=== PATIENT | male | born 1960 | race Caucasian/White ===

== ENCOUNTER 2017-10-28 15:04 | Emergency (ER) | payer BC, MEDICAID ==
[~2017-10-28] VITALS: Ht 182.9 cm; Wt 83.9 kg
[~2017-10-28 15:04] MED LIST: GABA800T PO; SUBOXONE PO
[2017-10-28] MEDS ORDERED: LORA0.5T PO (15:27)
--- NOTE | 2017-10-28 15:41 | NUR ---
Patient discharged to home in stable conditon & steady gait. Written and verbal after care instructions given to patient and spouse. Patient and family verbalized understanding of instructions.
== END 2017-10-28 15:47 | disposition home or self-care (01) ==
LOC: ER 15:05
DX: Z76.0 Encounter for issue of repeat prescription (principal); F17.210 Nicotine dependence, cigarettes, uncomplicated; Z79.899 Other long term (current) drug therapy
CPT/HCPCS: 99281; A4663

== ENCOUNTER 2018-01-19 11:21 | Emergency (ER) | payer BC ==
[~2018-01-19] VITALS: Ht 182.9 cm; Wt 86.2 kg
[~2018-01-19 11:21] MED LIST changes: +LORA0.5T PO
[2018-01-19] MEDS ORDERED: METH10TA2 PO (11:33)
[2018-01-19] MEDS ORDERED: OXYC30TA2 PO (11:33)
[2018-01-19 12:00] LABS: *BILIRUBIN,URIN NEGATIVE (NEGATIVE); *BLOOD, URINE NEGATIVE (NEGATIVE); *CLARITY,URINE CLEAR (CLEAR); *COLOR,URINE YELLOW (YELLOW); *KETONES,URINE NEGATIVE (NEGATIVE); *PROTEIN,URINE NEGATIVE (NEGATIVE); *UROBILINOGEN,URINE 0.2 E.U./dl (NORMAL); LEUKOCYTE ESTERASE ,URINE NEGATIVE (NEGATIVE); NITRITE, URINE NEGATIVE (NEGATIVE); PH,URINE 8.5 (5.0-8.0); UGLUCOSE NEGATIVE (NEGATIVE)
[2018-01-19 12:25] LABS: BACTERIA,URINE FEW /HPF (NONE SEEN); RBC,URINE 0-3 /HPF (0-3); SQUAMOUS EPITHELIAL CELL,UR NONE SEEN /HPF (NONE SEEN); WBC,URINE 0-3 /HPF (0-3)
[2018-01-19] MEDS ORDERED: HYDROMORPHONE 1 MG/1 ML DISP.SYRIN IV ONE ×2 (12:30→16:00)
[2018-01-19] MEDS ORDERED: IV NORMAL SALINE 1000 ML BAG IV ONE (12:30)
[2018-01-19] MEDS ORDERED: ONDANSETRON 4 MG/2 ML VIAL IV ONE (12:30)
[2018-01-19 13:06] LABS: BASOPHILS # (AUTO) 0.1 K/uL (0.0-8.0); BASOPHILS % (AUTO) 1.5 % (0.0-2.0); EOSINOPHILS # (AUTO) 0.2 K/uL (0.0-0.7); EOSINOPHILS % (AUTO) 2.1 % (0.0-7.0); HEMATOCRIT 40.4 % (36.7-47.1); HEMOGLOBIN 13.8 g/dL (12.5-16.3); LYMPHOCYTES # (AUTO) 1.6 K/uL (20.0-40.0); LYMPHOCYTES % (AUTO) 19.3 % (20.5-51.5); MEAN CORPUSCULAR HEMOGLOBIN 29.6 uug (23.8-33.4); MEAN CORPUSCULAR HGB CONC 34 g/dL (32.5-36.3); MEAN CORPUSCULAR VOLUME 86.3 fL (73.0-96.2); MONOCYTES # (AUTO) 0.5 K/uL (2.0-10.0); MONOCYTES % (AUTO) 5.6 % (0.0-11.0); NEUTROPHILS % (AUTO) 71.5 % (38.5-71.5); PLATELET COUNT (AUTO) 182 K/uL (152-348); RED BLOOD CELL COUNT(AUTO) 4.68 MIL/uL (4.06-5.63); WHITE BLOOD COUNT (AUTO) 8.3 K/uL (3.6-10.2)
[2018-01-19] MEDS ORDERED: HYDROMORPHONE 2 MG/1 ML DISP.SYRIN ONE ×2 (13:16→16:02)
[2018-01-19] MEDS ORDERED: ONDANSETRON 4 MG/2 ML VIAL ONE (13:16)
--- NOTE | 2018-01-19 13:18 | NUR ---
LAB DRTEW BLOOD, EKG DONE, 1L 0.9NS INFUSING, MEDS ADMIN.
[2018-01-19 13:20] LABS: POTASSIUM 4.2 mmol/L (3.5-5.1)
[2018-01-19 13:25] LABS: BILIRUBIN,DIRECT 0.1 mg/dL (0.0-0.2); BILIRUBIN,TOTAL 0.6 mg/dL (0.2-1.0); TOTAL PROTEIN, SERUM 7.4 g/dL (6.4-8.2)
[2018-01-19] MEDS ORDERED: IV NORMAL SALINE 250 ML IV ONE (13:32)
[2018-01-19] MEDS ORDERED: SWABABLE VALVE TRANSFER SET EA MC ONE (13:32)
[2018-01-19] MEDS ORDERED: IOHEXOL 300MG/ML 100 ML INFUS..BTL ONE (13:32)
[2018-01-19] MEDS ORDERED: NORMAL SALINE FLUSH 10 ML DISP.SYRIN ONE (13:32)
--- NOTE | 2018-01-19 13:35 | NUR ---
[facility] CALLED, DR WATKINS SPOKE WITH THEM.
[2018-01-19] MEDS ORDERED: BISACODYL 5 MG TABLET.DR PO ONE ×2 (17:15→17:20)
--- NOTE | 2018-01-19 17:20 | NUR ---
MSE COMPLETED, IV'S D/C'D INTACT, PT D/C'D HOME, ACI/RX X1 GIVEN. PT GOT DRESSED/AMBULATED W/O DIFF/TOOK ALL BELONGINGS, SIG OTHER TO DRIVE.
[2018-01-19 17:32] VITALS: BP 113/80
== END 2018-01-19 17:35 | disposition home or self-care (01) ==
LOC: ER 11:21
DX: R10.2 Pelvic and perineal pain (principal); F17.200 Nicotine dependence, unspecified, uncomplicated
CPT/HCPCS: 36415; 71045; 74177; 80048; 80076; 81001; 82140; 83605; 83690; 84484; 85025; 85730; 87040 ×2; 87086; 93005; 96374; 96375; 96376; 99285; A4663; J1170 ×2; J2405; J3490; J7030; J7050; Q9967; 70030-TC

== ENCOUNTER 2018-02-15 12:02 | Emergency (ER) | payer BC ==
[~2018-02-15] VITALS: Ht 182.9 cm; Wt 83.9 kg
[~2018-02-15 12:02] MED LIST changes: -LORA0.5T PO; +METH10TA2 PO; +OXYC30TA2 PO; -SUBOXONE PO
--- NOTE | 2018-02-15 12:32 | NUR ---
pt is in room #2b. dr Damico evaluated the pt.
[2018-02-15 12:37] LABS: BASOPHILS # (AUTO) 0.1 K/uL (0.0-8.0); BASOPHILS % (AUTO) 1.6 % (0.0-2.0); EOSINOPHILS # (AUTO) 0.4 K/uL (0.0-0.7); EOSINOPHILS % (AUTO) 4.7 % (0.0-7.0); HEMATOCRIT 38.8 % (36.7-47.1); HEMOGLOBIN 13.5 g/dL (12.5-16.3); LYMPHOCYTES # (AUTO) 2.8 K/uL (20.0-40.0); LYMPHOCYTES % (AUTO) 29.9 % (20.5-51.5); MEAN CORPUSCULAR HEMOGLOBIN 29.8 uug (23.8-33.4); MEAN CORPUSCULAR HGB CONC 35 g/dL (32.5-36.3); MEAN CORPUSCULAR VOLUME 85.4 fL (73.0-96.2); MONOCYTES # (AUTO) 0.8 K/uL (2.0-10.0); MONOCYTES % (AUTO) 8.3 % (0.0-11.0); NEUTROPHILS # (AUTO) 5.3 K/uL (1.8-8.9); NEUTROPHILS % (AUTO) 55.5 % (38.5-71.5); PLATELET COUNT (AUTO) 141 K/uL (152-348); RED BLOOD CELL COUNT(AUTO) 4.55 MIL/uL (4.06-5.63); WHITE BLOOD COUNT (AUTO) 9.5 K/uL (3.6-10.2)
[2018-02-15 12:43] LABS: POTASSIUM 3.8 mmol/L (3.5-5.1)
[2018-02-15] MEDS ORDERED: KETOROLAC TROMETHAMINE 30 MG INJ IM ONE (12:45)
[2018-02-15] MEDS ORDERED: KETOROLAC TROMETHAMINE 30 MG INJ ONE (12:55)
--- NOTE | 2018-02-15 13:54 | NUR ---
pt was d/c to home. d/c instructions given to the pt.
[2018-02-15 13:55] VITALS: BP 142/72
== END 2018-02-15 13:57 | disposition home or self-care (01) ==
LOC: ER 12:05
DX: I80.01 Phlebitis and thrombophlebitis of superficial vessels of right lower extremity (principal); L03.115 Cellulitis of right lower limb; F17.200 Nicotine dependence, unspecified, uncomplicated
CPT/HCPCS: 36415; 73610; 83605; 85025; 85651; 87040; A4663; J1885

== ENCOUNTER 2018-02-17 18:26 | Emergency (ER) | payer BC ==
[~2018-02-17] VITALS: Ht 182.9 cm; Wt 83.9 kg
--- NOTE | 2018-02-17 18:44 | NUR ---
OLY WILKES at the bedside for MSE.
--- NOTE | 2018-02-17 18:50 | NUR ---
Handsoff report given to Cristóbal HOWARD.
--- NOTE | 2018-02-17 18:59 | NUR ---
RECEIVED SHIFT REPORT FROM ANITA VILLARREAL. POSTAL TRANSPORTATION CLERK AT BEDSIDE. PT RESTING IN BED AT THIS TIME. BED IN LOW AND LOCKED POSITION WITH BILATERAL SIDERAILS UP. PT C/O R FOOT PAIN, NO PROVOKING FACTOR, NUMBING IN QUALITY, 11/20, CONSTANT. PT DENIES INJURY TO THE RLE. NO SWELLING IN RLE, NO REDNESS, NO TEMP.
[2018-02-17 19:23] LABS: BASOPHILS # (AUTO) 0.1 K/uL (0.0-8.0); EOSINOPHILS # (AUTO) 0.5 K/uL (0.0-0.7); EOSINOPHILS % (AUTO) 6.1 % (0.0-7.0); HEMATOCRIT 37.3 % (36.7-47.1); HEMOGLOBIN 12.8 g/dL (12.5-16.3); LYMPHOCYTES # (AUTO) 2.3 K/uL (20.0-40.0); LYMPHOCYTES % (AUTO) 27.6 % (20.5-51.5); MEAN CORPUSCULAR HEMOGLOBIN 29.7 uug (23.8-33.4); MEAN CORPUSCULAR HGB CONC 34 g/dL (32.5-36.3); MEAN CORPUSCULAR VOLUME 86.4 fL (73.0-96.2); MONOCYTES # (AUTO) 0.6 K/uL (2.0-10.0); MONOCYTES % (AUTO) 7.6 % (0.0-11.0); NEUTROPHILS # (AUTO) 4.8 K/uL (1.8-8.9); NEUTROPHILS % (AUTO) 57.7 % (38.5-71.5); PLATELET COUNT (AUTO) 147 K/uL (152-348); RED BLOOD CELL COUNT(AUTO) 4.32 MIL/uL (4.06-5.63); WHITE BLOOD COUNT (AUTO) 8.4 K/uL (3.6-10.2)
[2018-02-17 19:38] LABS: BILIRUBIN,DIRECT 0.1 mg/dL (0.0-0.2); BILIRUBIN,TOTAL 0.4 mg/dL (0.2-1.0); POTASSIUM 4.2 mmol/L (3.5-5.1); TOTAL PROTEIN, SERUM 6.9 g/dL (6.4-8.2)
--- NOTE | 2018-02-17 20:01 | NUR ---
OLY WILKES AT BEDSIDE FOR PT UPDATE.
--- NOTE | 2018-02-17 20:06 | NUR ---
Patient discharged to home in stable conditon. Written and verbal after care instructions given. Patient verbalizes understanding of instructions. PT D/C WITH PRESCRIPTION FOR LORAZEPAM. ALL BELONGINGS W/ PT. PT SELF-AMBULATED WITHOUT DIFFICULTY. PT IS WITH FAMILY MEMBER. PT WILL BE DRIVEN HOME BY FAMILY IN PRIVATE VEHICLE.
[2018-02-17 20:08] VITALS: BP 133/76
== END 2018-02-17 20:10 | disposition home or self-care (01) ==
LOC: ER 18:28
DX: R20.0 Anesthesia of skin (principal); R22.42 Localized swelling, mass and lump, left lower limb; F17.200 Nicotine dependence, unspecified, uncomplicated
CPT/HCPCS: 36415; 83605; 85025; 87040; 93005; A4663

== ENCOUNTER 2018-02-24 14:46 | Emergency (ER) | payer BC ==
[~2018-02-24] VITALS: Ht 182.9 cm; Wt 86.2 kg
[2018-02-24 15:11] VITALS: BP 128/70
--- NOTE | 2018-02-24 15:11 | NUR ---
Patient discharged to home in stable conditon. Written and verbal after care instructions given. Patient verbalizes understanding of instructions.
== END 2018-02-24 15:12 | disposition home or self-care (01) ==
LOC: ER 14:46
DX: L03.115 Cellulitis of right lower limb (principal); F17.200 Nicotine dependence, unspecified, uncomplicated
CPT/HCPCS: A4663

== ENCOUNTER 2018-03-03 17:15 | Emergency (ER) | payer BC ==
[~2018-03-03] VITALS: Ht 182.9 cm; Wt 83.9 kg
[2018-03-03] MEDS ORDERED: SULF1TAB48 PO (17:49)
[2018-03-03] MEDS ORDERED: TAMS-3 PO (17:49)
--- NOTE | 2018-03-03 18:30 | NUR ---
DR BRAXTON AT THE BEDSIDE FOR MSE. RECTAL EXAM FOR HEMORRHOIDS AND STOOL FOR OB.
[2018-03-03 18:44] LABS: *OCCULT BLOOD STOOL NEGATIVE (NEGATIVE)
[2018-03-03] MEDS ORDERED: MORPHINE SULFATE 4 MG/1 ML DISP.SYRIN ONE ×2 (18:53→19:50)
[2018-03-03] MEDS ORDERED: ONDANSETRON 4 MG/2 ML VIAL ONE (18:54)
[2018-03-03] MEDS ORDERED: MORPHINE SULFATE 4 MG/1 ML DISP.SYRIN IV ONE ×2 (19:00→19:45)
[2018-03-03] MEDS ORDERED: IV NORMAL SALINE 1000 ML BAG IV ONE (19:00)
[2018-03-03] MEDS ORDERED: ONDANSETRON IV *ER 4 MG/2 ML VIAL IV ONE (19:00)
[2018-03-03 19:21] LABS: *BILIRUBIN,URIN NEGATIVE (NEGATIVE); *BLOOD, URINE NEGATIVE (NEGATIVE); *CLARITY,URINE CLEAR (CLEAR); *COLOR,URINE YELLOW (YELLOW); *KETONES,URINE NEGATIVE (NEGATIVE); *PROTEIN,URINE NEGATIVE (NEGATIVE); *UROBILINOGEN,URINE 0.2 E.U./dl (NORMAL); LEUKOCYTE ESTERASE ,URINE NEGATIVE (NEGATIVE); NITRITE, URINE NEGATIVE (NEGATIVE); UGLUCOSE NEGATIVE (NEGATIVE)
[2018-03-03 19:28] LABS: MUCUS,URINE FEW /LPF (0-FEW); RBC,URINE 0-3 /HPF (0-3); WBC,URINE 0-3 /HPF (0-3)
--- NOTE | 2018-03-03 19:48 | NUR ---
RADIOLOGY at bedside for US.
--- NOTE | 2018-03-03 19:53 | NUR ---
US complete, preliminary results to ERMD.
[2018-03-03 19:55] LABS: BASOPHILS # (AUTO) 0.1 K/uL (0.0-8.0); BASOPHILS % (AUTO) 0.9 % (0.0-2.0); EOSINOPHILS # (AUTO) 0.1 K/uL (0.0-0.7); EOSINOPHILS % (AUTO) 2.2 % (0.0-7.0); HEMATOCRIT 40.2 % (36.7-47.1); HEMOGLOBIN 13.4 g/dL (12.5-16.3); LYMPHOCYTES # (AUTO) 1.6 K/uL (20.0-40.0); LYMPHOCYTES % (AUTO) 26.1 % (20.5-51.5); MEAN CORPUSCULAR HGB CONC 33 g/dL (32.5-36.3); MONOCYTES # (AUTO) 0.4 K/uL (2.0-10.0); MONOCYTES % (AUTO) 7.3 % (0.0-11.0); NEUTROPHILS # (AUTO) 3.9 K/uL (1.8-8.9); NEUTROPHILS % (AUTO) 63.5 % (38.5-71.5); PLATELET COUNT (AUTO) 225 K/uL (152-348); RED BLOOD CELL COUNT(AUTO) 4.62 MIL/uL (4.06-5.63); WHITE BLOOD COUNT (AUTO) 6.1 K/uL (3.6-10.2)
[2018-03-03 19:59] LABS: POTASSIUM 3.9 mmol/L (3.5-5.1)
[2018-03-03 20:04] LABS: BILIRUBIN,DIRECT 0.1 mg/dL (0.0-0.2); BILIRUBIN,TOTAL 0.4 mg/dL (0.2-1.0); TOTAL PROTEIN, SERUM 7.5 g/dL (6.4-8.2)
--- NOTE | 2018-03-03 20:12 | NUR ---
Patient to RADIOLOGY for CT via wheelchair.
--- NOTE | 2018-03-03 20:26 | NUR ---
Patient returned from RADIOLOGY, no acute distress noted.
[2018-03-03] MEDS ORDERED: KETOROLAC TROMETHAMINE 30 MG INJ ONE (20:59)
[2018-03-03] MEDS ORDERED: KETOROLAC TROMETHAMINE 30 MG INJ IVP ONE (21:00)
--- NOTE | 2018-03-03 22:04 | NUR ---
Patient discharged to home in stable conditon. Written and verbal after care instructions given. Patient requested information regarding drug detox/rehab programs, provided written and verbal education/resources. Patient verbalizes understanding of instructions.
== END 2018-03-03 22:06 | disposition home or self-care (01) ==
LOC: ER 17:17
DX: R10.12 Left upper quadrant pain (principal); R10.32 Left lower quadrant pain; R22.42 Localized swelling, mass and lump, left lower limb; F17.200 Nicotine dependence, unspecified, uncomplicated
CPT/HCPCS: 36415; 74176; 80048; 80076; 81001; 82270; 83605; 83690; 85025; 87086; 93971; 96374 ×2; 96375; 96376; 99285; J1885; J2270 ×2; J2405; A4663

== ENCOUNTER 2018-03-09 21:04 | Emergency (ER) | payer BC ==
[~2018-03-09] VITALS: Ht 182.9 cm; Wt 86.2 kg
[~2018-03-09 21:04] MED LIST changes: +SULF1TAB48 PO; +TAMS-3 PO
--- NOTE | 2018-03-09 21:26 | NUR ---
PT A/OX4, RESPONSIVE TO VERBAL AND TACTILE STIMULI. PT C/O LUQ ABD PAIN THAT STARTED TODAY AROUND 1700, NO PROVOKING FACTOR, SHARP IN QUALITY, RADIATES DOWN INTO THE GROIN, 11/20, CONSTANT. PT REPORTS LUQ ABD TENDERNESS. DENIES N/V/D, C/P, SOB. NO GUARDING NOTED. VSS. ABD IS VISUALLY DISTENDED, BOWEL SOUNDS ACTIVE IN ALL 4 QUADRANTS, AND ABD TENDERNESS UPON PALPATION. ER MD AT BEDSIDE.
--- NOTE | 2018-03-09 22:05 | NUR ---
SYNTHETIC SOIL BLOCKS PULPER AT BEDSIDE.
--- NOTE | 2018-03-09 22:07 | NUR ---
FIBERGLASS LUGGAGE MOLDER AT BEDSIDE.
--- NOTE | 2018-03-09 22:22 | NUR ---
US TECH AT BEDSIDE.
[2018-03-09 22:25] LABS: BASOPHILS # (AUTO) 0.1 K/uL (0.0-8.0); BASOPHILS % (AUTO) 1.3 % (0.0-2.0); EOSINOPHILS # (AUTO) 0.3 K/uL (0.0-0.7); EOSINOPHILS % (AUTO) 4.3 % (0.0-7.0); HEMATOCRIT 38.7 % (36.7-47.1); HEMOGLOBIN 13.2 g/dL (12.5-16.3); LYMPHOCYTES # (AUTO) 2.2 K/uL (20.0-40.0); LYMPHOCYTES % (AUTO) 34.5 % (20.5-51.5); MEAN CORPUSCULAR HEMOGLOBIN 29.5 uug (23.8-33.4); MEAN CORPUSCULAR HGB CONC 34 g/dL (32.5-36.3); MEAN CORPUSCULAR VOLUME 86.8 fL (73.0-96.2); MONOCYTES # (AUTO) 0.6 K/uL (2.0-10.0); MONOCYTES % (AUTO) 8.9 % (0.0-11.0); NEUTROPHILS # (AUTO) 3.3 K/uL (1.8-8.9); PLATELET COUNT (AUTO) 257 K/uL (152-348); RED BLOOD CELL COUNT(AUTO) 4.46 MIL/uL (4.06-5.63); WHITE BLOOD COUNT (AUTO) 6.5 K/uL (3.6-10.2)
[2018-03-09 22:34] LABS: CREATININE 1.1 mg/dL (0.6-1.3); POTASSIUM 4.4 mmol/L (3.5-5.1)
[2018-03-09 22:40] LABS: BILIRUBIN,TOTAL 0.2 mg/dL (0.2-1.0); TOTAL PROTEIN, SERUM 7.4 g/dL (6.4-8.2)
[2018-03-09 22:54] LABS: *BILIRUBIN,URIN NEGATIVE (NEGATIVE); *BLOOD, URINE NEGATIVE (NEGATIVE); *CLARITY,URINE CLEAR (CLEAR); *COLOR,URINE YELLOW (YELLOW); *KETONES,URINE NEGATIVE (NEGATIVE); *PROTEIN,URINE NEGATIVE (NEGATIVE); *UROBILINOGEN,URINE 0.2 E.U./dl (NORMAL); LEUKOCYTE ESTERASE ,URINE NEGATIVE (NEGATIVE); NITRITE, URINE NEGATIVE (NEGATIVE); PH,URINE 5.5 (5.0-8.0); UGLUCOSE NEGATIVE (NEGATIVE)
[2018-03-09] MEDS ORDERED: ONDANSETRON ODT 4 MG TAB.RAPDIS ONE (22:57)
[2018-03-09] MEDS ORDERED: ONDANSETRON ODT 4 MG TAB.RAPDIS SL ONE (23:00)
--- NOTE | 2018-03-09 23:01 | NUR ---
OLY WILKES AT BEDSIDE FOR PT UPDATE.
[2018-03-09 23:03] LABS: BACTERIA,URINE NONE SEEN /HPF (NONE SEEN); RBC,URINE NONE SEEN /HPF (0-3); SQUAMOUS EPITHELIAL CELL,UR NONE SEEN /HPF (NONE SEEN); WBC,URINE 0-3 /HPF (0-3)
--- NOTE | 2018-03-09 23:13 | NUR ---
Patient discharged to home in stable conditon. Written and verbal after care instructions given. Patient verbalizes understanding of instructions. PT D/C W/ PRESCRIPTION. ALL BELONGINGS W/ PT. PT SELF-AMBULATED WITHOUT DIFFICULTY.
[2018-03-09 23:31] VITALS: BP 122/74
== END 2018-03-09 23:13 | disposition home or self-care (01) ==
LOC: ER 21:05
DX: G89.4 Chronic pain syndrome (principal); R10.12 Left upper quadrant pain; R10.32 Left lower quadrant pain; F41.9 Anxiety disorder, unspecified; G47.00 Insomnia, unspecified; F11.23 Opioid dependence with withdrawal; F17.200 Nicotine dependence, unspecified, uncomplicated
CPT/HCPCS: 36415; 76770; 83690; 85025; A4663; Q0162

== ENCOUNTER 2018-03-17 12:11 | Emergency (ER) | payer BC ==
[~2018-03-17] VITALS: Ht 182.9 cm; Wt 86.2 kg
[2018-03-17] MEDS ORDERED: SUBOXONE PO (12:23)
[2018-03-17 12:33] LABS: BASOPHILS # (AUTO) 0.1 K/uL (0.0-8.0); EOSINOPHILS # (AUTO) 0.1 K/uL (0.0-0.7); EOSINOPHILS % (AUTO) 1.6 % (0.0-7.0); HEMATOCRIT 39.5 % (36.7-47.1); HEMOGLOBIN 13.6 g/dL (12.5-16.3); LYMPHOCYTES # (AUTO) 1.5 K/uL (20.0-40.0); LYMPHOCYTES % (AUTO) 24.3 % (20.5-51.5); MEAN CORPUSCULAR HEMOGLOBIN 29.7 uug (23.8-33.4); MEAN CORPUSCULAR HGB CONC 34 g/dL (32.5-36.3); MEAN CORPUSCULAR VOLUME 86.3 fL (73.0-96.2); MONOCYTES # (AUTO) 0.4 K/uL (2.0-10.0); NEUTROPHILS % (AUTO) 66.1 % (38.5-71.5); PLATELET COUNT (AUTO) 225 K/uL (152-348); RED BLOOD CELL COUNT(AUTO) 4.58 MIL/uL (4.06-5.63); WHITE BLOOD COUNT (AUTO) 6.1 K/uL (3.6-10.2)
--- NOTE | 2018-03-17 13:25 | NUR ---
PT SIGNED CONSENT FOR IV CONTRAST, PLACED IN THE CHART.
--- NOTE | 2018-03-17 14:01 | NUR ---
PT OUT OF ER FOR CT.
--- NOTE | 2018-03-17 14:22 | NUR ---
PT BACK FROM CT, RESTING IN BED, NAD NOTED.
[2018-03-17] MEDS ORDERED: SWABABLE VALVE TRANSFER SET EA MC ONE (14:49)
[2018-03-17] MEDS ORDERED: LIDOCAINE HCL 1% 20 ML VIAL ONE (14:49)
[2018-03-17] MEDS ORDERED: IOHEXOL 350 100 ML INFUS..BTL ONE (14:50)
[2018-03-17] MEDS ORDERED: ONDANSETRON ODT 4 MG TAB.RAPDIS SL ONE (16:00)
[2018-03-17 16:44] VITALS: BP 123/66
--- NOTE | 2018-03-17 16:45 | NUR ---
Patient discharged to home in stable conditon. Written and verbal after care instructions given. Patient verbalizes understanding of instructions.
[2018-03-17] MEDS ORDERED: ONDANSETRON ODT 4 MG TAB.RAPDIS ONE (16:59)
== END 2018-03-17 16:45 | disposition home or self-care (01) ==
LOC: ER 12:11
DX: R07.9 Chest pain, unspecified (principal); F41.9 Anxiety disorder, unspecified; F17.290 Nicotine dependence, other tobacco product, uncomplicated; R42 Dizziness and giddiness
CPT/HCPCS: 36415; 71045; 71275; 80048; 84484 ×2; 85025; 85379; 93005; 99285; 99406; J3490; Q9967; 70030-TC; A4663; Q0162

== ENCOUNTER 2018-03-24 07:32 | Emergency (ER) | payer BC ==
[~2018-03-24] VITALS: Ht 182.9 cm; Wt 86.2 kg
[~2018-03-24 07:32] MED LIST changes: -METH10TA2 PO; +SUBOXONE PO; -SULF1TAB48 PO
--- NOTE | 2018-03-24 09:39 | NUR ---
Patient discharged to home in stable conditon. Written and verbal after care instructions given. Patient verbalizes understanding of instructions.pt walks in steady gait. pt accompaneid by family member.no sign of distress at this point
[2018-03-24 09:41] VITALS: BP 119/69
== END 2018-03-24 09:42 | disposition home or self-care (01) ==
LOC: ER 07:32
DX: R22.41 Localized swelling, mass and lump, right lower limb (principal); F17.290 Nicotine dependence, other tobacco product, uncomplicated
CPT/HCPCS: A4663

== ENCOUNTER 2018-04-13 15:05 | Emergency (ER) | payer BC ==
[~2018-04-13] VITALS: Ht 182.9 cm; Wt 86.2 kg
--- NOTE | 2018-04-13 15:16 | NUR ---
seen by Dr Montoya
[2018-04-13] MEDS ORDERED: KETOROLAC TROMETHAMINE 60 MG INJ IM ONE ×2 (15:22→15:30)
--- NOTE | 2018-04-13 15:29 | NUR ---
medicated for back pain scale 10/10
--- NOTE | 2018-04-13 15:33 | NUR ---
patient requested to talk to dr basilio prior to discharge. dr basilio at the bedside
--- NOTE | 2018-04-13 15:39 | NUR ---
exit care instructions and prescription given to patient. family at the bedside. discharged home
== END 2018-04-13 15:41 | disposition home or self-care (01) ==
LOC: ER 15:07
DX: I44.2 Atrioventricular block, complete (principal); F17.200 Nicotine dependence, unspecified, uncomplicated; Z79.891 Long term (current) use of opiate analgesic; Z79.899 Other long term (current) drug therapy
CPT/HCPCS: 96372; 99283; J1885; A4663

== ENCOUNTER 2018-04-14 16:39 | Emergency (ER) | payer BC ==
[~2018-04-14] VITALS: Ht 182.9 cm; Wt 86.2 kg
[2018-04-14] MEDS ORDERED: LORAZEPAM 0.5 MG TABLET PO ONE (17:15)
[2018-04-14] MEDS ORDERED: KETOROLAC TROMETHAMINE 30 MG INJ IM ONE (17:15)
[2018-04-14] MEDS ORDERED: LORAZEPAM 1 MG TABLET ONE (17:19)
[2018-04-14] MEDS ORDERED: KETOROLAC TROMETHAMINE 30 MG INJ ONE (17:19)
--- NOTE | 2018-04-14 17:30 | NUR ---
mse completed, meds admin, pt d/c'd home, aci/rx 2 given. pt ambuklated w/o diff/took all belongings.
[2018-04-14 17:32] VITALS: BP 122/74
== END 2018-04-14 17:32 | disposition home or self-care (01) ==
LOC: ER 16:41
DX: K59.4 Anal spasm (principal); F17.200 Nicotine dependence, unspecified, uncomplicated; Z79.899 Other long term (current) drug therapy; Z79.891 Long term (current) use of opiate analgesic
CPT/HCPCS: 96372; 99283; J1885; A4663

== ENCOUNTER 2018-05-17 17:14 | Emergency (ER) | payer BC ==
[~2018-05-17] VITALS: Ht 182.9 cm; Wt 83.9 kg
[2018-05-17] MEDS ORDERED: METH10TA2 PO (17:28)
--- NOTE | 2018-05-17 18:36 | NUR ---
MSE COMPLETED, COPY OF TROPONIN AND EKG GIVEN WITH ACI/RX X1 TO PT. PT GOT DRESSED AND AMBULATED W/O DIFF/TOOK ALL BELONGINGS.
[2018-05-17 18:38] VITALS: BP 128/78
== END 2018-05-17 18:40 | disposition home or self-care (01) ==
LOC: ER 17:16
DX: F41.9 Anxiety disorder, unspecified (principal); F17.200 Nicotine dependence, unspecified, uncomplicated; Z79.891 Long term (current) use of opiate analgesic; Z79.899 Other long term (current) drug therapy
CPT/HCPCS: 36415; 70030-TC; 93005; A4663

== ENCOUNTER 2018-09-11 18:46 | Emergency (ER) | payer BC ==
[~2018-09-11] VITALS: Ht 182.9 cm; Wt 90.7 kg
[~2018-09-11 18:46] MED LIST changes: +METH10TA2 PO; -SUBOXONE PO
[2018-09-11] MEDS ORDERED: METHADONE HCL 10 MG TABLET PO (19:16)
[2018-09-11] MEDS ORDERED: OXYCODONE HCL 30 MG TABLET (19:16)
--- NOTE | 2018-09-11 19:29 | NUR ---
Dr De Los Santos into eval patient
[2018-09-11] MEDS ORDERED: HYDROMORPHONE HCL 2 MG TABLET ONE ×2 (19:41→20:32)
[2018-09-11] MEDS ORDERED: HYDROMORPHONE HCL 2 MG TABLET PO ONE ×2 (19:45→20:30)
[2018-09-11 19:55] VITALS: BP 118/61
--- NOTE | 2018-09-11 20:39 | NUR ---
Patient discharged to home in stable conditon with taking patient home. Written and verbal after care instructions given. Patient verbalizes understanding of instructions. walked out of er with no distress noted
== END 2018-09-11 20:38 | disposition home or self-care (01) ==
LOC: ER 18:46
DX: G89.4 Chronic pain syndrome (principal); K62.89 Other specified diseases of anus and rectum; F17.200 Nicotine dependence, unspecified, uncomplicated; Z79.899 Other long term (current) drug therapy
CPT/HCPCS: A4663

== ENCOUNTER 2018-11-24 13:04 | Emergency (ER) | payer BC ==
[~2018-11-24] VITALS: Ht 182.9 cm; Wt 90.7 kg
[~2018-11-24 13:04] MED LIST changes: -METH10TA2 PO; +METHADONE HCL 10 MG TABLET PO; +OXYCODONE HCL 30 MG TABLET; -TAMS-3 PO
--- NOTE | 2018-11-24 13:40 | NUR ---
PATIENT WAS MSE BY DR GALINDO IN ROOM 04A.
[2018-11-24] MEDS ORDERED: ONDANSETRON 4 MG/2 ML VIAL IM ONE (13:45)
[2018-11-24] MEDS ORDERED: HYDROMORPHONE 1 MG/1 ML DISP.SYRIN IM ONE (13:45)
[2018-11-24] MEDS ORDERED: HYDROMORPHONE 2 MG/1 ML DISP.SYRIN ONE (13:51)
[2018-11-24] MEDS ORDERED: ONDANSETRON 4 MG/2 ML VIAL ONE (13:51)
[2018-11-24 14:05] VITALS: BP 114/75
--- NOTE | 2018-11-24 14:06 | NUR ---
Patient discharged to home in stable conditon. Written and verbal after care instructions given. Patient and verbalizes understanding of instructions.
== END 2018-11-24 14:07 | disposition home or self-care (01) ==
LOC: ER 13:05
DX: G89.4 Chronic pain syndrome (principal); K62.89 Other specified diseases of anus and rectum; F17.200 Nicotine dependence, unspecified, uncomplicated; Z79.899 Other long term (current) drug therapy
CPT/HCPCS: 96372 ×2; 99283; J1170; J2405; A4663

== ENCOUNTER 2019-03-19 13:33 | Emergency (ER) | payer BC ==
[~2019-03-19] VITALS: Ht 182.9 cm; Wt 88.5 kg
--- NOTE | 2019-03-19 14:11 | NUR ---
pt ambulating with steady gait. A&O x4 c/o blood in urine and pain when urinating. pt has hx of cystoscopy (01/29/19) and TURP (08/28/18). per pt pain steadily getting worse x4 weeks since cystoscopy on 01/29/19. pt denies any fever or chills. Breathing even and unlabored. denies any SOB. speech clear and able to make needs known. fall precautions observed. bed low, s/r up x2
[2019-03-19 14:12] LABS: *BILIRUBIN,URIN NEGATIVE (NEGATIVE); *BLOOD, URINE 2+ (NEGATIVE); *CLARITY,URINE CLEAR (CLEAR); *COLOR,URINE YELLOW (YELLOW); *KETONES,URINE NEGATIVE (NEGATIVE); *UROBILINOGEN,URINE 0.2 E.U./dl (NORMAL); LEUKOCYTE ESTERASE ,URINE 1+ (NEGATIVE); NITRITE, URINE NEGATIVE (NEGATIVE); PH,URINE 5.5 (5.0-8.0); UGLUCOSE NEGATIVE (NEGATIVE)
[2019-03-19 14:23] LABS: MUCUS,URINE FEW /LPF (0-FEW); SQUAMOUS EPITHELIAL CELL,UR FEW /HPF (NONE SEEN)
[2019-03-19] MEDS ORDERED: PHENAZOPYRIDINE HCL 100 MG TABLET PO ONE (15:00)
[2019-03-19] MEDS ORDERED: IV NORMAL SALINE 1000 ML BAG IV ONE (15:00)
[2019-03-19] MEDS ORDERED: PHENAZOPYRIDINE HCL 100 MG TABLET ONE (15:05)
[2019-03-19] MEDS ORDERED: SWABABLE VALVE TRANSFER SET EA MC ONE (15:15)
[2019-03-19] MEDS ORDERED: IOHEXOL 300MG/ML 100 ML INFUS..BTL ONE (15:15)
--- NOTE | 2019-03-19 15:28 | NUR ---
Pt signed consent for IV contrast adminestration.
[2019-03-19 15:46] LABS: BASOPHILS # (AUTO) 0.1 K/uL (0.0-8.0); BASOPHILS % (AUTO) 0.9 % (0.0-2.0); EOSINOPHILS # (AUTO) 0.1 K/uL (0.0-0.7); EOSINOPHILS % (AUTO) 1.4 % (0.0-7.0); HEMATOCRIT 40.4 % (36.7-47.1); HEMOGLOBIN 13.4 g/dL (12.5-16.3); LYMPHOCYTES # (AUTO) 2.3 K/uL (20.0-40.0); LYMPHOCYTES % (AUTO) 26.4 % (20.5-51.5); MEAN CORPUSCULAR HEMOGLOBIN 28.6 uug (23.8-33.4); MEAN CORPUSCULAR HGB CONC 33 g/dL (32.5-36.3); MEAN CORPUSCULAR VOLUME 86.3 fL (73.0-96.2); MONOCYTES # (AUTO) 0.8 K/uL (2.0-10.0); MONOCYTES % (AUTO) 8.5 % (0.0-11.0); NEUTROPHILS # (AUTO) 5.6 K/uL (1.8-8.9); NEUTROPHILS % (AUTO) 62.8 % (38.5-71.5); PLATELET COUNT (AUTO) 178 K/uL (152-348); RED BLOOD CELL COUNT(AUTO) 4.69 MIL/uL (4.06-5.63); WHITE BLOOD COUNT (AUTO) 8.9 K/uL (3.6-10.2)
[2019-03-19 15:52] LABS: CREATININE 1.1 mg/dL (0.6-1.3); POTASSIUM 4.1 mmol/L (3.5-5.1)
[2019-03-19 15:58] LABS: BILIRUBIN,DIRECT 0.1 mg/dL (0.0-0.2); BILIRUBIN,TOTAL 0.4 mg/dL (0.2-1.0); TOTAL PROTEIN, SERUM 6.9 g/dL (6.4-8.2)
--- NOTE | 2019-03-19 16:13 | NUR ---
pt taken to Radiology dept. for CT scan
--- NOTE | 2019-03-19 16:35 | NUR ---
pt back from CT scan
[2019-03-19] MEDS ORDERED: ONDANSETRON 4 MG/2 ML VIAL ONE ×2 (16:44→18:27)
[2019-03-19] MEDS ORDERED: MORPHINE SULFATE 4 MG/1 ML DISP.SYRIN ONE (16:44)
[2019-03-19] MEDS ORDERED: MORPHINE SULFATE 4 MG/1 ML DISP.SYRIN IV ONE (16:45)
[2019-03-19] MEDS: ONDANSETRON 4 MG/2 ML VIAL IV ONE ×2 (16:57→16:59)
[2019-03-19] MEDS ORDERED: HYDROMORPHONE 1 MG/1 ML DISP.SYRIN ONE (18:27)
[2019-03-19] MEDS ORDERED: HYDROMORPHONE 1 MG/1 ML DISP.SYRIN IV ONE (18:30)
[2019-03-19] MEDS ORDERED: ONDANSETRON 4 MG/2 ML VIAL IV ONE (18:30)
--- NOTE | 2019-03-19 18:43 | NUR ---
IV removed. Catheter intact and site benign. Pressure and 4x4 gauze applied to site. No bleeding noted.Patient discharged to home in stable conditon. Written and verbal after care instructions given. Patient verbalizes understanding of instructions. pt ambulating with steady gait
[2019-03-19 18:44] VITALS: BP 134/72
== END 2019-03-19 18:33 | disposition home or self-care (01) ==
LOC: ER 13:33
DX: N39.0 Urinary tract infection, site not specified (principal); F17.200 Nicotine dependence, unspecified, uncomplicated; F41.9 Anxiety disorder, unspecified; Z79.899 Other long term (current) drug therapy
CPT/HCPCS: 36415; 74177; 80048; 80076; 81000; 81001; 83605; 83690; 84484; 85025; 87040 ×2; 87086; 96374; 96375; 96376; 99284; J1170; J2270; J2405 ×2; Q9967; 70030-TC; A4663; J7030

== ENCOUNTER 2020-01-23 22:16 | Emergency (ER) | payer BC, MEDICAID ==
[~2020-01-23] VITALS: Ht 182.9 cm; Wt 86.2 kg
[2020-01-23 22:58] LABS: BASOPHILS # (AUTO) 0.1 K/uL (0.0-8.0); BASOPHILS % (AUTO) 0.6 % (0.0-2.0); EOSINOPHILS # (AUTO) 0.1 K/uL (0.0-0.7); EOSINOPHILS % (AUTO) 0.6 % (0.0-7.0); HEMATOCRIT 42.7 % (36.7-47.1); HEMOGLOBIN 14.2 g/dL (12.5-16.3); LYMPHOCYTES # (AUTO) 1.8 K/uL (20.0-40.0); LYMPHOCYTES % (AUTO) 10.6 % (20.5-51.5); MEAN CORPUSCULAR HEMOGLOBIN 28.7 uug (23.8-33.4); MEAN CORPUSCULAR HGB CONC 33 g/dL (32.5-36.3); MEAN CORPUSCULAR VOLUME 86.3 fL (73.0-96.2); MONOCYTES # (AUTO) 1.2 K/uL (2.0-10.0); MONOCYTES % (AUTO) 7.1 % (0.0-11.0); NEUTROPHILS % (AUTO) 81.1 % (38.5-71.5); PLATELET COUNT (AUTO) 235 K/uL (152-348); RED BLOOD CELL COUNT(AUTO) 4.94 MIL/uL (4.06-5.63); WHITE BLOOD COUNT (AUTO) 17.2 K/uL (3.6-10.2)
[2020-01-23 23:15] LABS: CREATININE 1.8 mg/dL (0.6-1.3); POTASSIUM 4.7 mmol/L (3.5-5.1)
[2020-01-23 23:23] LABS: BILIRUBIN,DIRECT 0.1 mg/dL (0.0-0.2); BILIRUBIN,TOTAL 0.3 mg/dL (0.2-1.0); TOTAL PROTEIN, SERUM 7.8 g/dL (6.4-8.2)
[2020-01-24 01:50] VITALS: BP 140/85
== END 2020-01-24 01:51 | disposition left against medical advice (07) ==
LOC: ER 22:16
DX: T40.3X1A Poisoning by methadone, accidental (unintentional), initial encounter (principal); Y92.89 Other specified places as the place of occurrence of the external cause; F41.9 Anxiety disorder, unspecified; G89.4 Chronic pain syndrome; Z86.19 Personal history of other infectious and parasitic diseases; Z82.49 Family history of ischemic heart disease and other diseases of the circulatory system; Z83.3 Family history of diabetes mellitus; Z80.9 Family history of malignant neoplasm, unspecified; Z79.899 Other long term (current) drug therapy; N28.9 Disorder of kidney and ureter, unspecified; D72.829 Elevated white blood cell count, unspecified; R94.31 Abnormal electrocardiogram [ECG] [EKG]; F17.210 Nicotine dependence, cigarettes, uncomplicated
CPT/HCPCS: 36415; 85025; 93005; A4663

== ENCOUNTER 2020-02-01 21:29 | Emergency (ER) | payer BC ==
[~2020-02-01] VITALS: Ht 182.9 cm; Wt 79.4 kg
[~2020-02-01 21:29] MED LIST changes: -OXYC30TA2 PO
--- NOTE | 2020-02-01 21:43 | NUR ---
at [facility] for assessment
[2020-02-01] MEDS ORDERED: LIDOCAINE 2% (UROJET) 10 ML JELLY MM ONE ×2 (21:58→22:00)
[2020-02-01] MEDS ORDERED: ONDANSETRON 4 MG/2 ML VIAL IV ONE (22:00)
--- NOTE | 2020-02-01 22:15 | NUR ---
urine collected and sent to lab at this time
[2020-02-01 22:20] LABS: *BILIRUBIN,URIN NEGATIVE (NEGATIVE); *BLOOD, URINE NEGATIVE (NEGATIVE); *CLARITY,URINE CLEAR (CLEAR); *COLOR,URINE DARK YELLOW (YELLOW); *KETONES,URINE TRACE (NEGATIVE); *UROBILINOGEN,URINE 0.2 E.U./dl (NORMAL); LEUKOCYTE ESTERASE ,URINE NEGATIVE (NEGATIVE); NITRITE, URINE NEGATIVE (NEGATIVE); PH,URINE 5.5 (5.0-8.0); UGLUCOSE NEGATIVE (NEGATIVE)
[2020-02-01] MEDS ORDERED: ONDANSETRON ODT 4 MG TAB.RAPDIS ONE (22:24)
--- NOTE | 2020-02-01 22:25 | NUR ---
Lab noted in room to draw blood
[2020-02-01] MEDS ORDERED: LORAZEPAM 0.5 MG TABLET PO ONE (22:30)
[2020-02-01] MEDS ORDERED: ONDANSETRON ODT 4 MG TAB.RAPDIS SL ONE (22:30)
[2020-02-01 22:37] LABS: BASOPHILS # (AUTO) 0.1 K/uL (0.0-8.0); BASOPHILS % (AUTO) 0.8 % (0.0-2.0); EOSINOPHILS # (AUTO) 0.6 K/uL (0.0-0.7); EOSINOPHILS % (AUTO) 3.9 % (0.0-7.0); HEMATOCRIT 41.4 % (36.7-47.1); HEMOGLOBIN 14.1 g/dL (12.5-16.3); LYMPHOCYTES # (AUTO) 3.9 K/uL (20.0-40.0); LYMPHOCYTES % (AUTO) 26.5 % (20.5-51.5); MEAN CORPUSCULAR HEMOGLOBIN 29.1 uug (23.8-33.4); MEAN CORPUSCULAR HGB CONC 34 g/dL (32.5-36.3); MEAN CORPUSCULAR VOLUME 85.2 fL (73.0-96.2); MONOCYTES # (AUTO) 0.8 K/uL (2.0-10.0); MONOCYTES % (AUTO) 5.2 % (0.0-11.0); NEUTROPHILS # (AUTO) 9.3 K/uL (1.8-8.9); NEUTROPHILS % (AUTO) 63.6 % (38.5-71.5); PLATELET COUNT (AUTO) 188 K/uL (152-348); RED BLOOD CELL COUNT(AUTO) 4.86 MIL/uL (4.06-5.63); WHITE BLOOD COUNT (AUTO) 14.6 K/uL (3.6-10.2)
[2020-02-01 22:39] LABS: CREATININE 1.1 mg/dL (0.6-1.3); POTASSIUM 3.6 mmol/L (3.5-5.1)
[2020-02-01 22:44] LABS: BILIRUBIN,DIRECT 0.1 mg/dL (0.0-0.2); BILIRUBIN,TOTAL 0.3 mg/dL (0.2-1.0); TOTAL PROTEIN, SERUM 6.9 g/dL (6.4-8.2)
--- NOTE | 2020-02-01 23:04 | NUR ---
Patient discharged to home in stable condition. Patient noted ambulating with steady gait. took all belongings. instructed not to drive while taking prescribed medications. states his will drive him home, Rx given. Written and verbal after care instructions given. Patient verbalizes understanding of instructions. Stressed follow up or return to ER for worsening s/s.
[2020-02-01 23:13] VITALS: BP 130/74
== END 2020-02-01 23:04 | disposition home or self-care (01) ==
LOC: ER 21:29
DX: F11.23 Opioid dependence with withdrawal (principal); G89.4 Chronic pain syndrome; T14.90XS Injury, unspecified, sequela; X58.XXXS Exposure to other specified factors, sequela; Z86.19 Personal history of other infectious and parasitic diseases; Z83.3 Family history of diabetes mellitus; Z82.49 Family history of ischemic heart disease and other diseases of the circulatory system; D72.829 Elevated white blood cell count, unspecified; R00.1 Bradycardia, unspecified; R39.89 Other symptoms and signs involving the genitourinary system
CPT/HCPCS: 36415; 70030-TC; 85025; 93005; J7030; Q0162

== ENCOUNTER 2020-02-02 15:35 | Emergency (ER) | payer BC ==
[~2020-02-02] VITALS: Ht 182.9 cm; Wt 79.4 kg
--- NOTE | 2020-02-02 16:10 | NUR ---
Michela lopez in [facility] - 02/02/20 at 1634 by SAMUEL TRANSFERED PT TO [facility] IN STABLE CNDITION. PT REMAINED CALM AND COOPERATIVE THE WHOLE ER STAY.
== END 2020-02-02 16:10 | disposition left against medical advice (07) ==
LOC: ER 15:37
DX: Z45.89 Encounter for adjustment and management of other implanted devices (principal); G89.4 Chronic pain syndrome; F17.200 Nicotine dependence, unspecified, uncomplicated; R11.0 Nausea; R19.7 Diarrhea, unspecified; Z82.49 Family history of ischemic heart disease and other diseases of the circulatory system; Z80.9 Family history of malignant neoplasm, unspecified; Z83.3 Family history of diabetes mellitus; Z79.899 Other long term (current) drug therapy; Z79.891 Long term (current) use of opiate analgesic
CPT/HCPCS: A4663

== ENCOUNTER 2020-02-12 13:05 | Emergency (ER) | payer BC ==
[~2020-02-12] VITALS: Ht 182.9 cm; Wt 86.2 kg
--- NOTE | 2020-02-12 13:21 | NUR ---
MD@bedside, medical screening exam in progress
--- NOTE | 2020-02-12 13:25 | NUR ---
Patient eloped from facility. ER physician notified.
[2020-02-12] MEDS ORDERED: KETOROLAC TROMETHAMINE 60 MG INJ IM ONE (13:30)
== END 2020-02-12 13:25 | disposition left against medical advice (07) ==
LOC: ER 13:05
DX: K62.89 Other specified diseases of anus and rectum (principal); Z76.5 Malingerer [conscious simulation]; T14.90XS Injury, unspecified, sequela; G89.4 Chronic pain syndrome; F11.20 Opioid dependence, uncomplicated; F15.20 Other stimulant dependence, uncomplicated; F13.20 Sedative, hypnotic or anxiolytic dependence, uncomplicated; F17.290 Nicotine dependence, other tobacco product, uncomplicated
CPT/HCPCS: A4663

== ENCOUNTER 2020-02-29 18:11 | Emergency (ER) | payer BC ==
[~2020-02-29] VITALS: Ht 182.9 cm; Wt 86.2 kg
--- NOTE | 2020-02-29 18:37 | NUR ---
Dr. Damico at bedside for MSE
[2020-02-29 18:55] LABS: *BILIRUBIN,URIN NEGATIVE (NEGATIVE); *BLOOD, URINE NEGATIVE (NEGATIVE); *CLARITY,URINE CLEAR (CLEAR); *COLOR,URINE YELLOW (YELLOW); *KETONES,URINE NEGATIVE (NEGATIVE); *UROBILINOGEN,URINE 0.2 E.U./dl (NORMAL); LEUKOCYTE ESTERASE ,URINE NEGATIVE (NEGATIVE); NITRITE, URINE NEGATIVE (NEGATIVE); PH,URINE 7.5 (5.0-8.0); UGLUCOSE NEGATIVE (NEGATIVE)
--- NOTE | 2020-02-29 19:14 | NUR ---
Covid swab collected and sent to lab at this time
--- NOTE | 2020-02-29 19:33 | NUR ---
Patient discharged to home in stable condition. Able to ambulate in steady manner, took all belongings. no signs of acute distress. Rx given. Written and verbal after care instructions given. Patient verbalizes understanding of instructions. Stressed follow up or return to ER for worsening s/s.
[2020-02-29 19:34] VITALS: BP 109/74
== END 2020-02-29 19:34 | disposition home or self-care (01) ==
LOC: ER 18:15
DX: J06.9 Acute upper respiratory infection, unspecified (principal); F17.210 Nicotine dependence, cigarettes, uncomplicated; R05 Cough; Z20.828 Contact with and (suspected) exposure to other viral communicable diseases; S31.114D Laceration without foreign body of abdominal wall, left lower quadrant without penetration into peritoneal cavity, subsequent encounter; W26.0XXD Contact with knife, subsequent encounter; G89.4 Chronic pain syndrome; Z86.19 Personal history of other infectious and parasitic diseases; Z79.891 Long term (current) use of opiate analgesic; Z83.3 Family history of diabetes mellitus; Z82.49 Family history of ischemic heart disease and other diseases of the circulatory system
CPT/HCPCS: 71045; 81001; 87086; 99284; 99406; U0003; A4663

== ENCOUNTER 2020-03-03 11:23 | Emergency (ER) | payer BC ==
[~2020-03-03] VITALS: Ht 182.9 cm; Wt 86.2 kg
--- NOTE | 2020-03-03 11:30 | NUR ---
DR Abarca at the bedside for MSE.
--- NOTE | 2020-03-03 11:36 | NUR ---
MD@bedside, medical screening exam in progress
[2020-03-03] MEDS ORDERED: IV NORMAL SALINE 1000 ML BAG IV ONE (11:45)
[2020-03-03] MEDS ORDERED: KETOROLAC TROMETHAMINE 15 MG INJ IVP ONE (11:45)
--- NOTE | 2020-03-03 11:45 | NUR ---
Pt signed consent for IV contrasted CT, placed in the chart.
[2020-03-03 11:53] LABS: *BILIRUBIN,URIN NEGATIVE (NEGATIVE); *BLOOD, URINE NEGATIVE (NEGATIVE); *CLARITY,URINE CLEAR (CLEAR); *COLOR,URINE YELLOW (YELLOW); *KETONES,URINE NEGATIVE (NEGATIVE); *UROBILINOGEN,URINE 0.2 E.U./dl (NORMAL); LEUKOCYTE ESTERASE ,URINE NEGATIVE (NEGATIVE); NITRITE, URINE NEGATIVE (NEGATIVE); PH,URINE 5.5 (5.0-8.0); UGLUCOSE NEGATIVE (NEGATIVE)
[2020-03-03] MEDS ORDERED: KETOROLAC TROMETHAMINE 15 MG INJ ONE (11:56)
[2020-03-03 12:39] LABS: BASOPHILS # (AUTO) 0.1 K/uL (0.0-8.0); BASOPHILS % (AUTO) 0.8 % (0.0-2.0); EOSINOPHILS # (AUTO) 0.2 K/uL (0.0-0.7); EOSINOPHILS % (AUTO) 2.1 % (0.0-7.0); HEMATOCRIT 39.1 % (36.7-47.1); LYMPHOCYTES # (AUTO) 2.5 K/uL (20.0-40.0); LYMPHOCYTES % (AUTO) 28.2 % (20.5-51.5); MEAN CORPUSCULAR HEMOGLOBIN 29.1 uug (23.8-33.4); MEAN CORPUSCULAR HGB CONC 33 g/dL (32.5-36.3); MEAN CORPUSCULAR VOLUME 87.3 fL (73.0-96.2); MONOCYTES # (AUTO) 0.6 K/uL (2.0-10.0); MONOCYTES % (AUTO) 6.9 % (0.0-11.0); NEUTROPHILS # (AUTO) 5.5 K/uL (1.8-8.9); PLATELET COUNT (AUTO) 191 K/uL (152-348); RED BLOOD CELL COUNT(AUTO) 4.48 MIL/uL (4.06-5.63); WHITE BLOOD COUNT (AUTO) 8.8 K/uL (3.6-10.2)
[2020-03-03] MEDS ORDERED: SWABABLE VALVE TRANSFER SET EA MC ONE (12:44)
[2020-03-03] MEDS ORDERED: IOHEXOL 300MG/ML 100 ML INFUS..BTL ONE (12:44)
[2020-03-03] MEDS ORDERED: IV NORMAL SALINE 250 ML IV ONE (12:44)
[2020-03-03 12:47] LABS: POTASSIUM 4.2 mmol/L (3.5-5.1)
[2020-03-03 12:53] LABS: BILIRUBIN,DIRECT 0.1 mg/dL (0.0-0.2); BILIRUBIN,TOTAL 0.3 mg/dL (0.2-1.0); TOTAL PROTEIN, SERUM 6.2 g/dL (6.4-8.2)
--- NOTE | 2020-03-03 13:09 | NUR ---
Extra warm blankets (2) on. Patient wants MD manpreet notified.
[2020-03-03] MEDS ORDERED: LORAZEPAM 0.5 MG TABLET ONE (14:25)
--- NOTE | 2020-03-03 14:26 | NUR ---
IV removed@1425. Catheter intact and site benign. Pressure and 4x4 gauze applied to site. No bleeding noted. Patient discharged to home in stable condition & brisk steady gait. Written and verbal after care instructions given to patient. Patient verbalized understanding & compliance of instructions. Stressed follow up with urologist or return to ER for worsening s/s. Patient was upset. Patient was requesting IV ativan repeatedly and ativan prescription upon discharge. MD is aware. Security assistance was called.
[2020-03-03] MEDS ORDERED: LORAZEPAM 0.5 MG TABLET PO ONE (14:30)
== END 2020-03-03 14:27 | disposition home or self-care (01) ==
LOC: ER 11:23
DX: N41.9 Inflammatory disease of prostate, unspecified (principal); F41.9 Anxiety disorder, unspecified; Z82.49 Family history of ischemic heart disease and other diseases of the circulatory system; Z83.3 Family history of diabetes mellitus; G89.4 Chronic pain syndrome; F17.200 Nicotine dependence, unspecified, uncomplicated; Z86.19 Personal history of other infectious and parasitic diseases; Z79.891 Long term (current) use of opiate analgesic; S31.134D Puncture wound of abdominal wall without foreign body, left lower quadrant without penetration into peritoneal cavity, subsequent encounter; X99.1XXD Assault by knife, subsequent encounter; F13.10 Sedative, hypnotic or anxiolytic abuse, uncomplicated; I48.91 Unspecified atrial fibrillation
CPT/HCPCS: 36415; 74177; 80048; 80076; 81001; 83690; 85025; 87086; 87491; 96374; 99285; J1885; Q9967; A4663; J7030; J7050

== ENCOUNTER 2020-05-02 16:10 | Emergency (ER) | payer BC ==
[~2020-05-02] VITALS: Ht 182.9 cm; Wt 86.2 kg
[2020-05-02 16:59] LABS: *BILIRUBIN,URIN NEGATIVE (NEGATIVE); *BLOOD, URINE NEGATIVE (NEGATIVE); *CLARITY,URINE CLEAR (CLEAR); *COLOR,URINE YELLOW (YELLOW); *KETONES,URINE NEGATIVE (NEGATIVE); *UROBILINOGEN,URINE 0.2 E.U./dl (NORMAL); LEUKOCYTE ESTERASE ,URINE NEGATIVE (NEGATIVE); NITRITE, URINE NEGATIVE (NEGATIVE); PH,URINE 6.5 (5.0-8.0); UGLUCOSE NEGATIVE (NEGATIVE)
[2020-05-02 17:24] LABS: BASOPHILS # (AUTO) 0.1 K/uL (0.0-8.0); BASOPHILS % (AUTO) 0.7 % (0.0-2.0); EOSINOPHILS # (AUTO) 0.1 K/uL (0.0-0.7); EOSINOPHILS % (AUTO) 1.3 % (0.0-7.0); HEMATOCRIT 41.4 % (36.7-47.1); HEMOGLOBIN 13.8 g/dL (12.5-16.3); LYMPHOCYTES # (AUTO) 1.6 K/uL (20.0-40.0); LYMPHOCYTES % (AUTO) 20.7 % (20.5-51.5); MEAN CORPUSCULAR HEMOGLOBIN 29.4 uug (23.8-33.4); MEAN CORPUSCULAR HGB CONC 33 g/dL (32.5-36.3); MEAN CORPUSCULAR VOLUME 88.2 fL (73.0-96.2); MONOCYTES # (AUTO) 0.5 K/uL (2.0-10.0); MONOCYTES % (AUTO) 6.3 % (0.0-11.0); NEUTROPHILS # (AUTO) 5.3 K/uL (1.8-8.9); PLATELET COUNT (AUTO) 197 K/uL (152-348); WHITE BLOOD COUNT (AUTO) 7.5 K/uL (3.6-10.2)
[2020-05-02 17:38] LABS: CREATININE 0.9 mg/dL (0.6-1.3); POTASSIUM 3.8 mmol/L (3.5-5.1)
[2020-05-02 17:44] LABS: BILIRUBIN,DIRECT 0.2 mg/dL (0.0-0.2); BILIRUBIN,TOTAL 0.4 mg/dL (0.2-1.0); TOTAL PROTEIN, SERUM 7.4 g/dL (6.4-8.2)
[2020-05-02] MEDS ORDERED: KETOROLAC TROMETHAMINE 15 MG INJ IVP ONE (19:15)
[2020-05-02] MEDS ORDERED: KETOROLAC TROMETHAMINE 15 MG INJ ONE (19:43)
--- NOTE | 2020-05-02 20:07 | NUR ---
Patient discharged to home in stable condition. Given Rx, able to ambulate withsteady gait. Written and verbal after care instructions given. Patient verbalizes understanding of instructions. Stressed follow up or return to ER for worsening s/s.
[2020-05-02 20:10] VITALS: BP 134/80
== END 2020-05-02 20:11 | disposition home or self-care (01) ==
LOC: ER 16:14
DX: R10.30 Lower abdominal pain, unspecified (principal); G89.4 Chronic pain syndrome; R10.2 Pelvic and perineal pain; R94.8 Abnormal results of function studies of other organs and systems; R00.1 Bradycardia, unspecified; B18.2 Chronic viral hepatitis C; Z82.49 Family history of ischemic heart disease and other diseases of the circulatory system; Z83.3 Family history of diabetes mellitus; Z80.9 Family history of malignant neoplasm, unspecified; Z79.891 Long term (current) use of opiate analgesic; Z79.899 Other long term (current) drug therapy; F41.9 Anxiety disorder, unspecified; F17.200 Nicotine dependence, unspecified, uncomplicated
CPT/HCPCS: 36415; 74176; 80048; 80076; 81003; 83690; 85025; 93005; 96372; 99285; J1885; A4663; J7040

== ENCOUNTER 2020-06-01 16:49 | Emergency (ER) | payer BC ==
[~2020-06-01] VITALS: Ht 182.9 cm; Wt 86.2 kg
--- NOTE | 2020-06-01 17:00 | NUR ---
Pt presents to ER with c/o of abd pain and nausea x 1 month. Placed in Bed 5A. NAD noted. Awaiting MD hooker.
[2020-06-01] MEDS ORDERED: HYDROMORPHONE 1 MG/1 ML DISP.SYRIN IV ONE ×2 (17:15→18:00)
[2020-06-01] MEDS ORDERED: ONDANSETRON 4 MG/2 ML VIAL IV ONE ×2 (17:15→18:00)
[2020-06-01] MEDS ORDERED: IV NORMAL SALINE 1000 ML BAG IV ONE (17:15)
[2020-06-01] MEDS ORDERED: ONDANSETRON 4 MG/2 ML VIAL ONE ×2 (17:37→18:09)
[2020-06-01] MEDS ORDERED: HYDROMORPHONE 1 MG/1 ML DISP.SYRIN ONE ×2 (17:37→18:09)
[2020-06-01 18:23] LABS: CREATININE 1.2 mg/dL (0.6-1.3); POTASSIUM 3.9 mmol/L (3.5-5.1)
[2020-06-01 18:25] LABS: BASOPHILS # (AUTO) 0.1 K/uL (0.0-8.0); EOSINOPHILS # (AUTO) 0.1 K/uL (0.0-0.7); HEMATOCRIT 42.4 % (36.7-47.1); LYMPHOCYTES # (AUTO) 1.9 K/uL (20.0-40.0); LYMPHOCYTES % (AUTO) 25.4 % (20.5-51.5); MEAN CORPUSCULAR HEMOGLOBIN 29.4 uug (23.8-33.4); MEAN CORPUSCULAR HGB CONC 33 g/dL (32.5-36.3); MEAN CORPUSCULAR VOLUME 88.8 fL (73.0-96.2); MONOCYTES # (AUTO) 0.6 K/uL (2.0-10.0); MONOCYTES % (AUTO) 7.6 % (0.0-11.0); NEUTROPHILS # (AUTO) 4.9 K/uL (1.8-8.9); PLATELET COUNT (AUTO) 187 K/uL (152-348); RED BLOOD CELL COUNT(AUTO) 4.77 MIL/uL (4.06-5.63); WHITE BLOOD COUNT (AUTO) 7.5 K/uL (3.6-10.2)
[2020-06-01 18:29] LABS: BILIRUBIN,DIRECT 0.1 mg/dL (0.0-0.2); BILIRUBIN,TOTAL 0.3 mg/dL (0.2-1.0); TOTAL PROTEIN, SERUM 7.2 g/dL (6.4-8.2)
[2020-06-01] MEDS ORDERED: LORAZEPAM 2 MG/1 ML VIAL IV ONE (18:30)
--- NOTE | 2020-06-01 18:30 | NUR ---
covid swabs sent
[2020-06-01] MEDS ORDERED: LORAZEPAM 2 MG/1 ML VIAL ONE (18:40)
[2020-06-01] MEDS ORDERED: KETOROLAC TROMETHAMINE 15 MG INJ IM ONE (19:45)
[2020-06-01] MEDS ORDERED: MORPHINE SULFATE 4 MG/1 ML DISP.SYRIN IV ONE (19:45)
[2020-06-01] MEDS ORDERED: IV NORMAL SALINE 500 ML BAG IV ONE (19:45)
[2020-06-01] MEDS ORDERED: MORPHINE SULFATE 4 MG/1 ML DISP.SYRIN ONE (19:58)
[2020-06-01] MEDS ORDERED: KETOROLAC TROMETHAMINE 15 MG INJ ONE (19:58)
--- NOTE | 2020-06-01 21:21 | NUR ---
DR HAWKINS SPOKE TO DR JORDAN FROM [facility] WHO WILL ACCEPT PATIENT AT [facility].
--- NOTE | 2020-06-02 00:02 | NUR ---
Gave SBAR report to [place] [id number]. Patient transfered to [facility].
--- NOTE | 2020-06-04 17:23 | NUR ---
Called and let pt know he tested NEGATIVE for Covid-19.
== END 2020-06-02 00:10 | disposition short-term general hospital (02) ==
LOC: ER 16:49
DX: K56.7 Ileus, unspecified (principal); K52.9 Noninfective gastroenteritis and colitis, unspecified; R11.2 Nausea with vomiting, unspecified; Z20.822 Contact with and (suspected) exposure to COVID-19; Z83.3 Family history of diabetes mellitus; Z82.49 Family history of ischemic heart disease and other diseases of the circulatory system; G89.4 Chronic pain syndrome; F17.200 Nicotine dependence, unspecified, uncomplicated; Z79.891 Long term (current) use of opiate analgesic; Z79.899 Other long term (current) drug therapy
CPT/HCPCS: 71045; 74176; 80048; 80076; 83605; 83690; 84484; 85025; 85730; 87426; 93005; 96361; 96374; 96375; 96376; 99285; J1170 ×2; J1885; J2060; J2270; J2405 ×2; U0003; 70030-TC; A4663; J7040

== ENCOUNTER 2020-07-15 15:05 | Emergency (ER) | payer BC ==
[~2020-07-15] VITALS: Ht 182.9 cm; Wt 86.2 kg
[2020-07-15] MEDS ORDERED: PANTOPRAZOLE SODIUM IV 40 MG in IV DEXTROSE 5% 100 ML IV ONE (15:45)
[2020-07-15] MEDS ORDERED: LIDOCAINE VISCUS 2% 15 ML UDC MM ONE (15:45)
[2020-07-15] MEDS ORDERED: IV NORMAL SALINE 1000 ML BAG IV ONE (15:45)
[2020-07-15] MEDS ORDERED: MAG HYDROX/AL HYDROX/SIMETH 30 ML LIQUID UDC PO ONE (15:45)
[2020-07-15 15:50] LABS: *OCCULT BLOOD STOOL POSITIVE (NEGATIVE)
[2020-07-15 16:09] LABS: BASOPHILS # (AUTO) 0.1 K/uL (0.0-8.0); BASOPHILS % (AUTO) 1.2 % (0.0-2.0); EOSINOPHILS # (AUTO) 0.1 K/uL (0.0-0.7); HEMATOCRIT 40.7 % (36.7-47.1); HEMOGLOBIN 14.2 g/dL (12.5-16.3); LYMPHOCYTES # (AUTO) 1.8 K/uL (20.0-40.0); LYMPHOCYTES % (AUTO) 25.9 % (20.5-51.5); MEAN CORPUSCULAR HEMOGLOBIN 30.1 uug (23.8-33.4); MEAN CORPUSCULAR HGB CONC 35 g/dL (32.5-36.3); MEAN CORPUSCULAR VOLUME 86.3 fL (73.0-96.2); MONOCYTES # (AUTO) 0.5 K/uL (2.0-10.0); MONOCYTES % (AUTO) 6.7 % (0.0-11.0); NEUTROPHILS # (AUTO) 4.4 K/uL (1.8-8.9); NEUTROPHILS % (AUTO) 64.2 % (38.5-71.5); PLATELET COUNT (AUTO) 198 K/uL (152-348); RED BLOOD CELL COUNT(AUTO) 4.71 MIL/uL (4.06-5.63); WHITE BLOOD COUNT (AUTO) 6.9 K/uL (3.6-10.2)
[2020-07-15] MEDS ORDERED: MAG HYDROX/AL HYDROX/SIMETH 30 ML LIQUID UDC ONE (16:15)
[2020-07-15] MEDS ORDERED: PANTOPRAZOLE SODIUM 40 MG VIAL ONE (16:15)
[2020-07-15] MEDS ORDERED: LIDOCAINE VISCUS 2% 15 ML UDC ONE (16:15)
[2020-07-15 16:17] LABS: CREATININE 1.1 mg/dL (0.6-1.3); POTASSIUM 3.9 mmol/L (3.5-5.1)
[2020-07-15 16:23] LABS: BILIRUBIN,DIRECT 0.1 mg/dL (0.0-0.2); BILIRUBIN,TOTAL 0.5 mg/dL (0.2-1.0); TOTAL PROTEIN, SERUM 7.1 g/dL (6.4-8.2)
[2020-07-15] MEDS ORDERED: SUCRALFATE 1 G TABLET PO SCH (16:30)
[2020-07-15] MEDS ORDERED: SWABABLE VALVE TRANSFER SET EA MC ONE (16:36)
[2020-07-15] MEDS ORDERED: IV NORMAL SALINE 250 ML IV ONE (16:37)
[2020-07-15] MEDS ORDERED: IOHEXOL 300MG/ML 100 ML INFUS..BTL ONE (16:37)
[2020-07-15] MEDS ORDERED: KETOROLAC TROMETHAMINE 15 MG INJ ONE (16:42)
[2020-07-15] MEDS ORDERED: KETOROLAC TROMETHAMINE 15 MG INJ IVP ONE ×2 (16:45→17:15)
[2020-07-15] MEDS ORDERED: PANT20TA2 PO (17:11)
[2020-07-15] MEDS ORDERED: POLY119P2 PO (17:11)
[2020-07-15] MEDS ORDERED: DICY20TA11 PO (17:11)
[2020-07-15] MEDS ORDERED: SUCRALFATE 1 G/10 ML LIQUID UDC ONE (17:23)
[2020-07-15] MEDS ORDERED: KETOROLAC TROMETHAMINE 30 MG INJ ONE (17:23)
--- NOTE | 2020-07-15 17:28 | NUR ---
Patient discharged to home in stable condition. Written and verbal after care instructions given. Patient verbalizes understanding of instructions. Stressed follow up or return to ER for worsening s/s.PT WALKS IN STEADY GAIT.
[2020-07-15 17:29] VITALS: BP 129/77
== END 2020-07-15 17:29 | disposition home or self-care (01) ==
LOC: ER 15:05
DX: K92.1 Melena (principal); R10.13 Epigastric pain; K59.00 Constipation, unspecified; Z83.3 Family history of diabetes mellitus; Z82.49 Family history of ischemic heart disease and other diseases of the circulatory system; G89.4 Chronic pain syndrome; Z86.19 Personal history of other infectious and parasitic diseases; F17.200 Nicotine dependence, unspecified, uncomplicated
CPT/HCPCS: 36415; 71045; 74177; 80048; 80076; 82270; 83605; 83690; 84484; 85025; 86850; 86900; 86901; 96361; 96374; 96375; 96376; 99285; C9113; J1885 ×2; Q9967; 70030-TC; A4663; J7030; J7050

== ENCOUNTER 2020-10-05 12:24 | Emergency (ER) | payer BC ==
[~2020-10-05] VITALS: Ht 182.9 cm; Wt 86.2 kg
[~2020-10-05 12:24] MED LIST changes: +DICY20TA11 PO; +PANT20TA2 PO; +POLY119P2 PO
--- NOTE | 2020-10-05 12:33 | NUR ---
Dr Montoya at the bedside for MSE.
[2020-10-05] MEDS ORDERED: LORA2TAB95 PO (13:20)
--- NOTE | 2020-10-05 13:30 | NUR ---
Patient discharged to home in stable condition. Written and verbal after care instructions given. Patient verbalizes understanding of instructions. Stressed follow up or return to ER for worsening s/s. Pt left ER w/ steady gait.
[2020-10-05 13:33] VITALS: BP 112/69
== END 2020-10-05 13:33 | disposition home or self-care (01) ==
LOC: ER 12:25
DX: S20.211A Contusion of right front wall of thorax, initial encounter (principal); W22.8XXA Striking against or struck by other objects, initial encounter; Y93.89 Activity, other specified; Y92.230 Patient room in hospital as the place of occurrence of the external cause; F17.200 Nicotine dependence, unspecified, uncomplicated; G89.4 Chronic pain syndrome; Z86.19 Personal history of other infectious and parasitic diseases; Z79.899 Other long term (current) drug therapy; F41.9 Anxiety disorder, unspecified
CPT/HCPCS: 71250; A4663

== ENCOUNTER 2023-01-03 14:41 | Emergency (ER) | payer BC ==
[~2023-01-03] VITALS: Ht 182.9 cm; Wt 86.2 kg
[~2023-01-03 14:41] MED LIST changes: +LORA2TAB95 PO
[2023-01-03 15:05] VITALS: O2SAT 98
== END 2023-01-03 17:08 | disposition left against medical advice (07) ==
LOC: ER 14:41
DX: Z53.21 Procedure and treatment not carried out due to patient leaving prior to being seen by health care provider (principal)
CPT/HCPCS: A4663

== ENCOUNTER 2023-01-08 14:23 | Emergency (ER) | payer BC ==
[~2023-01-08] VITALS: Ht 182.9 cm; Wt 86.2 kg
[2023-01-08 14:44] VITALS: BP 128/86; O2SAT 98
== END 2023-01-08 14:45 | disposition home or self-care (01) ==
LOC: ER 14:23
DX: S50.01XA Contusion of right elbow, initial encounter (principal); F17.210 Nicotine dependence, cigarettes, uncomplicated; Z79.899 Other long term (current) drug therapy; W22.8XXA Striking against or struck by other objects, initial encounter; Y93.89 Activity, other specified; Y92.89 Other specified places as the place of occurrence of the external cause; Y99.8 Other external cause status
CPT/HCPCS: A4663

== ENCOUNTER 2023-02-19 16:46 | Emergency (ER) | payer BC ==
[~2023-02-19] VITALS: Ht 185.4 cm; Wt 86.2 kg
[2023-02-19 18:11] VITALS: BP 118/74; TEMP 98.6; O2SAT 98
== END 2023-02-19 18:27 | disposition home or self-care (01) ==
LOC: ER 16:47
DX: S70.311A Abrasion, right thigh, initial encounter (principal); F17.210 Nicotine dependence, cigarettes, uncomplicated; Z79.899 Other long term (current) drug therapy; X58.XXXA Exposure to other specified factors, initial encounter; Y93.89 Activity, other specified; Y92.89 Other specified places as the place of occurrence of the external cause; Y99.8 Other external cause status
CPT/HCPCS: A4606; A4663

== ENCOUNTER 2023-03-05 16:20 | Emergency (ER) | payer BC ==
[~2023-03-05] VITALS: Ht 182.9 cm; Wt 88.5 kg
[2023-03-05] MEDS ORDERED: CLON1TAB PO (16:46)
[2023-03-05 17:56] VITALS: BP 129/84; O2SAT 97
== END 2023-03-05 17:58 | disposition home or self-care (01) ==
LOC: ER 16:23
DX: M25.521 Pain in right elbow (principal); F17.210 Nicotine dependence, cigarettes, uncomplicated; Z79.899 Other long term (current) drug therapy
CPT/HCPCS: 73080; A4606; A4663